=== PATIENT | male | born 1960 | race Caucasian/White ===

== ENCOUNTER 2018-02-24 09:19 | Outpatient (CLI) | payer OTHER ==
[2018-02-24] MEDS ORDERED: Triamcinolone 40 MG/ML VIAL IM SCH (12:15)
--- NOTE | 2018-02-24 16:32 | RAD ---
RIGHT HIP ARTHROGRAM: HISTORY: Right hip pain. COMPARISON: None. TECHNIQUE/FINDINGS: A transmission tester radiograph of the right hip demonstrates moderate narrowing of the superolateral hip joint wi th acetabular osteophyte formation. 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 Mild enthesopathic changes of the rectus femoris and direct head of the acetabulum. The patient's right hip was prepped and draped in the normal sterile fashion. Informed consent was o btained. Time out performed. Approximately 6 mL of Lidocaine was instilled into the superficial and deep soft tissues. Given the patient's habitus, a long, 7 cm, 22 gauge needle had to be used and had to be depressed and hubbed in to the skin for the needle to get into the capsule, and 10 mL of contrast solution for MRI was instil led into the joint, as well as 40 mg of Kenalog. The patient tolerated the procedure well without co mplications. IMPRESSION: Technically successful fluoroscopic guided right hip injection for arthrogram, as well as injection o f a steroid. POS: [facility]
--- NOTE | 2018-02-24 17:33 | MRI ---
MRI RIGHT HIP WITH CONTRAST: HISTORY: Hip pain. Arthrogram. COMPARISON: Arthrogram from the same day. FINDINGS: BONES: There is large bilateral acetabular osteophyte formation, larger on the right. There is osse ous fragmentation of the right acetabular labrum. No acute fracture. No malalignment. Moderate degenerative disease of the pubic symphysis. Small rig ht SI joint effusion with hypertrophic osteophyte formation. MUSCLES: Muscle signal is normal. TENDONS: There is a low grade partial tear of the right gluteus medius tendon. Mild tendinosis. No significant greater trochanteric bursa formation. LABRUM: There is degenerative tearing throughout the anterior-superior labrum. CARTILAGE: There is high-grade cartilage fibrillation along the anterolateral femoral head and aceta bulum. SOFT TISSUES: There is mild right-sided iliopsoas bursa formation. IMPRESSION: 1. Mild to moderate advanced degenerative changes of the right hip with 50% to 65% cartilage fraying of the femoral head and acetabulum, acetabular osteophyte formation, and degenerative tearing throug hout the anterior-superior labrum. 2. Mild right-sided gluteus medius partial tearing and tendinosis without significant greater trocha nteric bursa formation. 3. Asymmetric right-sided sacroiliac joint effusion with hypertrophic osteophyte formation. POS: [facility]
== END 2018-02-24 09:20 | disposition home or self-care (01) ==
LOC: RAD 09:19
DX: M25.551 Pain in right hip (principal); M16.11 Unilateral primary osteoarthritis, right hip; M24.851 Other specific joint derangements of right hip, not elsewhere classified; M25.48 Effusion, other site
CPT/HCPCS: 27093; J3301